=== PATIENT | female | born 1980 | race Caucasian/White ===

== ENCOUNTER 2021-05-13 06:44 | Inpatient (IN) ==
--- NOTE | 2021-05-02 15:15 | Anesthesiology Consultation ---
Date of Service May 02, 2021 Assessment & Plan (1) Encounter for pre-operative examination: Chart Review Chart Review: Acceptable Risk for Surgery (pending preop Covid testing and DOS Cepheid Covid test ) and Patient NOT seen in Pre Admission Testing - Check test AM DOS Per nursing assessment 05/02/2021, patient resides in [facility]. Traveled to [place] and returned [place] on 05/02/21. Pt drove. Pt is NOT vaccinated but wears mask. No known Covid positive contacts or Covid related symptoms. No known Covid infection in the past 90 days. Preop Covid testing scheduled 05/09/21= will await results. (Covid testing will be done 7 days from return home- will also order Cepheid test for AM of surgery due to travel risk/pt is inpatient surgery ). Will leave to anesthesiologist discretion AM of surgery if additional PPE or surgery time is needed. History Surgery Operation Date: 05/13/21 10:30 Proposed Procedures p L5-S1 Decompression Fusion, Spinal Cord Monitoring - Bello Funk DO Height/Weight Height: 5 ft Weight: 72.575 kg Allergies Allergy/AdvReac Type Severity Reaction Status Date / Time sertraline [From Zoloft] Allergy Mild hallucinati Verified 05/02/21 12:54 on venlafaxine [From Effexor] AdvReac Mild raised bp Verified 05/02/21 12:54 Medications Home Medications Medication Instructions Recorded Confirmed Last Taken bupropion HCl [Wellbutrin XL] 300 mg PO QAM 05/02/21 05/02/21 Unknown dextroamphetamine-amphetamine 30 mg PO BID 05/02/21 05/02/21 Unknown [Adderall XR] gabapentin 300 mg PO HS 05/02/21 05/02/21 Unknown hydrocodone-acetaminophen 1 tab PO BID PRN 05/02/21 05/02/21 Unknown levothyroxine [Synthroid] 50 mcg PO QAM 05/02/21 05/02/21 Unknown Past Medical History Medical History Anxiety Attention deficit disorder (ADD) DDD (degenerative disc disease) Depression Hypothyroidism Past Surgical History Surgical History History of carpal tunnel surgery of left wrist ulnar nerve release Hx of appendectomy Hx of heart surgery repair of PDA as child age 4 Social History Smoking Status: Never smoker Do You Dip or Chew Tobacco: No Hx Alcohol Use: Yes alcohol intake frequency: holidays/special occasions only Hx Substance Use: No substance use type: does not use Testing Laboratory Results 04/26/21= WBC: 6.31 H/H: 12.4/38.8 PLATELETS: 265 SODIUM: 138 POTASSIUM: 3.8 CHLORIDE: 108 CO2: 26.0 BUN: 13.0 CREATININE: 0.94 GLUCOSE: 81 PT: 11.1 INR: 0.98 UA: Negative Electrocardiogram Date: 04/26/21 Findings: + NSR @ (76 bpm) Normal EKG per cardio. Chest X-Ray Date: 04/26/21 Findings: + NAD Comparison made to study from 08/31/2016small metallic foreign body seen centrally in the mediastinum unchanged. Cardiac size is normal. Lungs show so me hyperaeration but no acute infiltrate, collapse or edema and no pleural effusion is noted.
[~2021-05-13 06:44] MED LIST: ACETAMINOPHEN 500 MG TAB PO SCH; CeleBREX 200 MG CAP PO SCH; GABAPENTIN 900 MG DOSE PO SCH; LR 15ML/HR IV SCH; ceFAZolin 1000MG 1,000 MG/7.5 ML SYR IV SCH
[2021-05-13] MEDS ORDERED: LABETALOL HCL IV 5 MG/ML 20ML IV PRN (07:32)
[2021-05-13] MEDS ORDERED: HYDROmorphone INJ 1 MG/ML SYRINGE IV PRN ×2 (07:32→12:46)
[2021-05-13] MEDS ORDERED: ePHEDrine sulfate 50 MG/ML AMP IV PRN (07:32)
[2021-05-13] MEDS ORDERED: MEPERIDINE HCL 25 MG/ML CARP/VIAL IV PRN (07:32)
[2021-05-13] MEDS ORDERED: ONDANSETRON INJ 2 MG/ML 2 ML VIAL IV PRN ×2 (07:32→12:46)
[2021-05-13] MEDS ORDERED: PHENYLEPHRINE 100MCG/ML 5ML SYR IV PRN (07:32)
[2021-05-13] MEDS ORDERED: ATROPINE SULFATE 0.1 MG/ML 10ML SYR IV PRN (07:32)
[2021-05-13] MEDS ORDERED: fentaNYL citrate 100 MCG/2 ML VIAL ONE (08:21)
[2021-05-13] MEDS ORDERED: HYDROmorphone INJ 2 MG/ML SYR/VIAL ONE (08:21)
[2021-05-13] MEDS ORDERED: MIDAZOLAM HCL 1 MG/ML 2ML VIAL ONE (08:21)
--- NOTE | 2021-05-13 08:58 | History & Physical Bridge Note ---
Date of Service May 13, 2021 History & Physical Bridge Note I have examined the patient, reviewed the History & Physical and in the interval since the performance of the History & Physical I have noted the following changes of clinical significance: no changes noted
--- NOTE | 2021-05-13 08:59 | History & Physical Report ---
Date of Service May 13, 2021 Assessment & Plan (1) Neurogenic claudication due to lumbar spinal stenosis: Admission and Anticipated Discharge Date Admission Date: L5-S1 decompression fusion History of Present Illness Chief Complaint: Back and bilateral leg pain Primary Care Provider: John Heran This is a 40-year-old female who presents with chronic persistent back and bilateral leg pain. After failing extensive course of nonoperative care she is here for surgical invention. Allergies Allergy/AdvReac Type Severity Reaction Status Date / Time sertraline [From Zoloft] Allergy Mild hallucinati Verified 05/13/21 07:15 on venlafaxine [From Effexor] AdvReac Mild raised bp Verified 05/13/21 07:15 Home Medications Medication Instructions Recorded Confirmed Type bupropion HCl [Wellbutrin XL] 300 mg PO QAM 05/02/21 05/13/21 History dextroamphetamine-amphetamine 30 mg PO BID 05/02/21 05/13/21 History [Adderall XR] gabapentin 300 mg PO HS 05/02/21 05/13/21 History hydrocodone-acetaminophen 1 tab PO BID PRN 05/02/21 05/13/21 History levothyroxine [Synthroid] 50 mcg PO QAM 05/02/21 05/13/21 History Past Med/Surg History Medical History (Updated 05/13/21 @ 08:59 by Bello Funk DO) Anxiety Attention deficit disorder (ADD) DDD (degenerative disc disease) Depression Hypothyroidism Obesity Surgical History History of carpal tunnel surgery of left wrist ulnar nerve release Hx of appendectomy Hx of heart surgery repair of PDA as child age 4 Social History Smoking Status: Never smoker Second Hand Exposure: No; Do You Dip or Chew Tobacco: No; Tobacco Cessation Education Requested by Patient: No Hx Alcohol Use: Yes Hx Substance Use: No Preferred Language: Slovak Communication Ability: Effective Jewel Bearing Broacher Required: No Beliefs That Will Affect Care: None Current Living Situation: Spouse Other Information That Helps Us Care for You: No Feels Safe at Home: Yes Safety Concerns: Feels Safe At This Time Assistive Devices: Contacts Physical Exam Physical Exam: Patient is alert and oriented Heart regular in rhythm Lungs clear to auscultation Results & Data ([facility]) Vital Signs (Past 12 Hours) Vital Signs Temp Pulse Resp BP Pulse Ox 05/13/21 07:27 36.8 C 82 20 105/60 100
[2021-05-13] MEDS ORDERED: BUPIVACAINE/EPINEPHRINE 0.5% MPF 1:200,000 30 ML VIAL ONE (09:19)
[2021-05-13] MEDS ORDERED: PHENYLEPHRINE 100MCG/ML 5ML SYR ONE (10:22)
[2021-05-13] MEDS ORDERED: ePHEDrine sulfate 50 MG/ML AMP ONE (10:22)
[2021-05-13] MEDS ORDERED: PROPOFOL IV EMULSION 10 MG/ML 20 ML VIAL IV ONE (10:24)
[2021-05-13] MEDS ORDERED: ROCURONIUM BROMIDE 10 MG/ML 5 ML VIAL IV ONE (10:24)
[2021-05-13] MEDS ORDERED: DEXAMETHASONE SOD INJ 4 MG/ML VIAL ONE (10:24)
[2021-05-13] MEDS ORDERED: ONDANSETRON INJ 2 MG/ML 2 ML VIAL ONE (10:24)
[2021-05-13] MEDS ORDERED: GLYCOPYRROLATE 0.2 MG/ML VIAL ONE (10:24)
[2021-05-13] MEDS ORDERED: LIDOCAINE 2% 2 ML VIAL/AMP(20MG/ML) INFIL ONE (10:24)
[2021-05-13] MEDS ORDERED: NEOSTIGMINE METHYLSULFATE 1 MG/ML 10ML VIAL ONE (10:24)
[2021-05-13] MEDS ORDERED: FLOSEAL HEMOSTATIC MATRIX 10ML TOP ONE (11:02)
--- NOTE | 2021-05-13 11:09 | Operative Report ---
Post Operative Report Pre & Post Diagnosis Operation Date: 05/13/21 09:35 Pre-Op Diagnosis: Neurogenic Claudication due to Lumbar Spinal Stenosis Spondylolisthesis L5-S1 Post-Op Diagnosis: Neurogenic Claudication due to Lumbar Spinal Stenosis Spondylolisthesis L5-S1 I identified the patient and participated in the time-out.: Yes Procedure Operation Date: 05/13/21 09:35 Actual Procedures #1 lumbar decompression with bilateral medial facetectomies and foraminotomies L5-S1. #2 posterior spinal fusion L5-S1. #3 placement posterior instrumentation L5-S1. #4 interbody fusion L5-S1. #5 placement peek cage 10 x 22 mm L5-S1. #6 placement locally harvested morselized autograft in the posterior lateral gutters. #7 placement of I factor combined with vitoss in the posterior gutters interbody space. Surgeon Bello Funk DO Recruiting And Selection Consultant Anel De Los Santos Estimated Blood Loss 150 Findings Consistent with Post-Op Diagnosis Specimens None Indications This is a 40-year-old female presents above-mentioned diagnosis after failed extensive course of nonoperative care is here for the above-mentioned procedure. Description of Procedure Patient was met with identified informed consent obtained. Patient was then taken to the operative suite underwent ablation placed in a prone position the Tevin table top Jimmy frame. All bony prominences well-padded eyes inspected to ensure no external pressure placed on them. This point the lumbar spine was prepped and draped no sterile fashion. Sharp dissection with the assistance of Bovie cardioselective exposing the lamina and transverse processes of L5 and sacral ala bilaterally. Obvious bilateral pars defect identified. A complete laminectomy of L5 was then performed including bilateral medial facetectomies and foraminotomies addressing severe foraminal stenosis. Pedicle screws were then placed in L5 and S1 levels bilaterally with assistance of fluoroscopy and the proper sized maine placed. By way of a transforaminal portion right a complete discectomy of L5-S1 was performed endplates curetted to subcortical being bone and a 10 x 22 mm peek cage filled with I factor tapped in position. The rods were then locked in final position bilaterally. The transverse processes of L5 and the sacral ala burred to subcortical being bone. I factor locally harvested morselized autograft and Vitoss were then placed in the posterior gutters. 15 round RAY drain inserted. Incision was then closed with 1 Vicryl to fascia 2-0 Vicryl subcutaneously and 4 Monocryl for final skin closure. Steri-Strips dressings placed. Patient waken taken to PACU stable condition. Please note spinal cord monitoring was utilized at the procedure no changes noted. Lastly Anel De Los Santos was present at the entire surgery and while the patient positioning complex portions of the surgery and final skin closure. I attest to the content of the Intraoperative Record and any orders documented therein. Any exceptions are noted below.
--- NOTE | 2021-05-13 11:12 | Fluoroscopy Report ---
FL lumbar spine 2-3V CLINICAL HISTORY: L5-S1 DECOMPRESSION/FUSION/INTERBODY COMPARISON STUDY: None FLUOROSCOPY TIME: 22nd. NUMBER OF FLUOROSCOPIC IMAGES: 2 FINDINGS: 2 intraoperative fluoroscopic spot images reveal postsurgical changes of an L5-S1 discectom y, and interbody fusion with posterior pedicle screw fixation. There is a suspected mild spondylolist hesis of L5 and S1. IMPRESSION: Intraoperative fluoroscopic spot images demonstrating postsurgical changes of an L5-S1 s susan decompression and fusion ACT 112: Negative or not required by law. Electronically signed by: Amilcar Koroma M.D. 05/13/2021 11:10 AM
[2021-05-13] MEDS: fentaNYL citrate 100 MCG/2 ML VIAL IV PRN ×3 (11:29→11:41)
--- NOTE | 2021-05-13 12:10 | Anesthesiology Progress Note ---
Date of Service May 13, 2021 Anesthesia Post Procedure Vital Signs Vital Signs: Temp Pulse Pulse Resp BP Pulse Ox 05/13/21 12:05 36.1 C L 69 12 103/56 L 100 05/13/21 11:55 77 13 95/58 L 100 05/13/21 11:45 78 15 92/47 L 100 05/13/21 11:35 83 15 97/52 L 100 05/13/21 11:28 36 C L 95 H 17 96/67 L 100 05/13/21 07:27 36.8 C 82 20 105/60 100 Pain Intensity Back: Pain Intensity: 2 Transfer of Care Handoff Completed per policy Notes Mental Status: alert / awake / arousable Patient Amnestic to Procedure: Yes Nausea / Vomiting: adequately controlled Pain: adequately controlled Airway Patency, RR, SpO2: stable & adequate BP & HR: stable & adequate Hydration State: stable & adequate Anesthetic Complications: no major complications apparent and Pt Satisfied with anesthetic care
[2021-05-13] MEDS ORDERED: NALOXONE HCL 0.4 MG/1 ML VIAL/CARP IV PRN (12:46)
[2021-05-13] MEDS ORDERED: traMADol HCL 50 MG TABLET PO PRN (12:46)
[2021-05-13] MEDS ORDERED: hydrOXYzine HCl 25 MG TAB PO PRN (12:46)
[2021-05-13] MEDS ORDERED: METOCLOPRAMIDE HCL INJ 5 MG/ML 2 ML VIAL IV PRN (12:46)
[2021-05-13] MEDS ORDERED: DO NOT ADMINISTER PNEUMOCOCCAL VACCINE PRN (12:46)
[2021-05-13] MEDS ORDERED: LORazepam 0.5 MG/1 ML VIAL IV PRN (12:46)
[2021-05-13] MEDS ORDERED: ACETAMINOPHEN 1,000 MG/100 ML VIAL IV PRN (12:46)
[2021-05-13] MEDS ORDERED: ALUMINUM/MAGNESIUM SUSP 30 ML UDC PO PRN (12:46)
[2021-05-13] MEDS ORDERED: FAMOTIDINE 20 MG TAB PO PRN (12:46)
[2021-05-13] MEDS ORDERED: DO NOT ADMINISTER FLU VACCINE PRN (12:46)
[2021-05-13] MEDS ORDERED: SOD PHOSPHATE/SOD BIPHOSPHATE ENEMA 132 ML BTL PR PRN (12:46)
[2021-05-13] MEDS ORDERED: HYDROmorphone INJ 0.5 MG/0.5 ML SYR IV PRN (12:46)
[2021-05-13] MEDS ORDERED: ACETAMINOPHEN 500 MG TAB PO PRN (12:46)
[2021-05-13] MEDS ORDERED: LORazepam 0.5 MG TAB PO PRN (12:46)
[2021-05-13] MEDS ORDERED: PROMETHAZINE HCL 12.5 MG in SODIUM CHLORIDE 0.9% 50 ML IV PRN (12:46)
[2021-05-13] MEDS ORDERED: MAGNESIUM HYDROXIDE SUSP 30 ML UDC PO PRN (12:46)
[2021-05-13] MEDS ORDERED: ONDANSETRON 4 MG OD TAB PO PRN (12:46)
[2021-05-13] MEDS ORDERED: diphenhydrAMINE Capsule 25 MG CAP PO PRN (12:46)
[2021-05-13] MEDS: LACTATED RINGER'S 1,000 ML IV SCH ×2 (13:26→22:44)
[2021-05-13] MEDS: KETOROLAC TROMETHAMINE 15 MG/ML VIAL IV SCH ×3 (13:26→23:33)
[2021-05-13] MEDS: DEXTROAMPHETAMINE/AMPHETAMINE ER 10 MG CAP PO SCH (13:27)
[2021-05-13] MEDS: oxyCODONE HCL IR 5 MG TAB (IMMEDIATE RELEASE) PO PRN ×2 (14:06→19:17)
[2021-05-13] MEDS: ceFAZolin 1000MG 1,000 MG/7.5 ML SYR IV SCH (17:46)
[2021-05-13] MEDS: GABAPENTIN 300 MG CAP PO SCH (20:17)
[2021-05-13] MEDS: DOCUSATE SODIUM/SENNA 50/8.6MG TAB PO SCH (20:17)
[2021-05-14] MEDS: ceFAZolin 1000MG 1,000 MG/7.5 ML SYR IV SCH (01:36)
[2021-05-14] MEDS: KETOROLAC TROMETHAMINE 15 MG/ML VIAL IV SCH (05:08)
[2021-05-14] MEDS: LEVOTHYROXINE SODIUM 50 MCG TABLET PO SCH (05:58)
[2021-05-14] MEDS: POLYETHYLENE (MIRALAX) 17 GM PACK PO SCH ×4 (05:59→23:39)
[2021-05-14 06:35] LABS: Eosinophils # (auto) 0.01 K/uL (0-0.5); Eosinophils % (auto) 0.1 %; Hemoglobin 10.5 g/dL (12.0-16.0); Immature Granulocytes # (auto) 0.03 K/uL (0.00-0.02); Immature Granulocytes % (auto) 0.2 %; Lymphocytes # (auto) 1.25 K/uL (1.2-3.4); Lymphocytes % (auto) 7.6 %; Mean Corpuscular Hemoglobin 29.9 pg (25-34); Mean Corpuscular Hgb Conc 31.8 g/dL (32-36); Mean Platelet Volume 9.4 fL (7.4-10.4); Monocytes # (auto) 0.84 K/uL (0.11-0.59); Monocytes % (auto) 5.1 %; Neutrophils # (auto) 14.22 K/uL (1.4-6.5); Platelet Count 277 K/uL (130-400); RDW Coefficient of Variation 13.1 % (11.5-14.5); Red Blood Count 3.51 M/uL (4.2-5.4); White Blood Count 16.35 K/uL (4.8-10.8)
[2021-05-14 07:12] LABS: BUN Creatinine Ratio 18.4 (10-20); Calcium 8.8 mg/dl (8.5-10.1); Creatinine Clr Calc Pharmacy 90.7 ml/min; Est GFR (African American) 119.4 ml/min; Potassium 4.3 mmol/L (3.5-5.1)
[2021-05-14] MEDS: oxyCODONE HCL IR 5 MG TAB (IMMEDIATE RELEASE) PO PRN ×4 (07:24→23:39)
[2021-05-14] MEDS: buPROPion XL 300 MG TABCR PO SCH ×2 (08:28→08:29)
[2021-05-14] MEDS: DEXTROAMPHETAMINE/AMPHETAMINE ER 10 MG CAP PO SCH ×2 (08:29→14:37)
--- NOTE | 2021-05-14 10:13 | Orthopedic Progress Note ---
Date of Service May 14, 2021 Assessment & Plan (1) Neurogenic claudication due to lumbar spinal stenosis: Admission and Anticipated Discharge Date Admission Date: May 13, 2021 This time initiate physical therapy monitor RAY operatively discharge home in the next few days. Subjective Patient's back pain is controlled leg pain markedly improved with some residual tingling in the right lower extremity. Physical Exam Physical Exam: Patient is good strength testing appears comfortable. Results & Data ([facility]) Vital Signs (Past 12 Hours) Vital Signs Temp Pulse Resp BP Pulse Ox 05/14/21 06:37 36.8 C 82 15 99/65 L 99 05/14/21 02:44 36.8 C 91 H 16 104/69 98 05/13/21 22:41 36.8 C 85 15 101/65 99
[2021-05-14] MEDS: GABAPENTIN 300 MG CAP PO SCH (20:15)
[2021-05-14] MEDS: DOCUSATE SODIUM/SENNA 50/8.6MG TAB PO SCH (20:15)
[2021-05-15] MEDS: oxyCODONE HCL IR 5 MG TAB (IMMEDIATE RELEASE) PO PRN ×2 (05:54→12:08)
[2021-05-15] MEDS: LEVOTHYROXINE SODIUM 50 MCG TABLET PO SCH (05:54)
[2021-05-15] MEDS: POLYETHYLENE (MIRALAX) 17 GM PACK PO SCH ×2 (05:55→11:16)
--- NOTE | 2021-05-15 07:53 | Discharge Summary ---
Date of Service May 15, 2021 Admission HPI Per Admitting Provider This is a 40-year-old female who presents with chronic persistent back and bilateral leg pain. After failing extensive course of nonoperative care she is here for surgical invention. Principal Diagnosis Lumbar spinal stenosis with neurogenic claudication Discharge Data Allergies Allergy/AdvReac Type Severity Reaction Status Date / Time sertraline [From Zoloft] Allergy Mild hallucinati Verified 05/13/21 07:15 on venlafaxine [From Effexor] AdvReac Mild raised bp Verified 05/13/21 07:15 Procedures Performed Operation Date: 05/13/21 09:35 Actual Procedures p L5-S1 Decompression Fusion with Insertion of Interbody, Spinal Cord Monitoring(Not Applicable) - Bello Fnuk DO Ordered Studies 05/13/21 09:35 [place] lumbar spine 2-3V Routine Hospital Course (1) Neurogenic claudication due to lumbar spinal stenosis: Patient with lumbar decompression fusion trial exhausting orthopedic for possibly. Postop day 1 she was up ambulating progressed the postop day #2. RAY drain decreasing appropriately. Excellent strength testing. Subsequent discha rge home. Discharge orders instructions were on the chart for further review. Total Time Total Time Spent Total Time Spent (In Minutes): 20 minutes Discharge Plan Discharge Items Patient Disposition: Home - Self-Care Reason For Visit: Spondylolisthesis, Lumbar Region Discharge Diagnosis: Lumbar spinal stenosis with neurogenic claudication Activity: As commented below Non-emergency contact: Primary Care Provider Call non-emergency contact if: you have any medication questions Follow-up/Referrals: John Hearn M.D. [Primary Care Provider] - Diet: Regular Addtl Attending Provider Instructions: ACTIVITY RECOMMENDATIONS: SELF CARE INSTRUCTIONS AFTER THORACIC/LUMBAR FUSIONS 1. You may walk to your tolerance. It is good exercise for your legs and back. Expect some back and intermittent leg aches and pains. 2. You may perform "counter-top" level activities (make a sandwich, ariana with a project, etc.). 3. No bending or lifting of more than 10 pounds or back twisting of any nature (roll like a log when turning in bed). 4. You may ride in a car for 20-30 minutes at a time. No driving until after your first visit with your doctor. 5. Frequent changes of position and restricting sitting to 30 minutes at a time will help limit the amount of back spasms and stiffness you may experience. 6. You may discontinue the use of ambulatory aids (cane, crutches, etc.) once your strength and confidence allow. 7. You may fisher hand line the shower and let water strike your incision when you arrive home at least once daily. Do not take a tub bath, sit in a hot tub or go into a swimming pool until after your first recheck in the office. SPECIAL CARE INSTRUCTIONS: VERY IMPORTANT TO READ AND REVIEW A. Your surgical incision has been closed with a cosmetic suture under the skin that will dissolve in about 6 weeks. In 14 days, you can use a pair of clean scissors and cut the suture that is left outside of the skin at the ends of your incision. 1. The small skin tapes can be removed 7 days after surgery if they have not fallen off by that point. 2. You may keep the wound open to air as much as possible to promote healing after post-op day number 5 unless told otherwise by your doctor. 3. If you think the wound looks like it is becoming infected (redness or worsening drainage) and/or you are experiencing fever, chill or worsening back pain and muscle spasms, contact the office so that we may evaluate you as soon as possible. B. Complications are uncommon, but please contact us if you have any signs or symptoms of: 1. wound infection (fever higher than 102.5 degrees F, redness, separation of wound, drainage, or increasing pain from the incision) 2. blood clots in legs (pain, swelling, redness and warmth in legs) 3. urinary tract infection (fever higher than 102.5 degrees F, burning upon urination or increased frequency of urination) 4. nerve problems (inability to walk on your toes or heels, numbness, loss of bowel or bladder control) 5. any other symptoms that concern you C. Please call the office at if you have any concerns or questions about your operation or recovery. D. No smoking! Smoking drastically decreases the chance of a solid fusion. E. Do not take any anti-inflammatory medications (Indocin, Advil, Motrin, Aspirin, Naprosyn, etc.) as these may inhibit the chance of a solid fusion. Tylenol is okay to take for pain. MANAGING PAIN AFTER SPINAL SURGERY 1. Narcotic medication is intended for short-term use and will be provided for surgical pain. Surgical pain usually lasts for a period of 4-6 weeks. Narcotic medication includes Percocet, Vicodin, Darvocet, Tylenol #3 or Lortab. 2. Longer-term pain is more appropriately treated with non-narcotic medication such as Tylenol ES. 3. Muscle spasm is not appropriately treated with narcotics. Muscle relaxers such as Soma, Flexeril or Skelaxin can be used along with Tylenol ES. 4. Remember that we all live with some "aches and pains". This is not unusual or uncommon after an injury or as we get older. a. Back pain is expected and may include muscle spasms for 4 to 6 weeks after surgery. The pain should gradually improve. If the pain worsens for no apparent reason, please contact the office. b. Intermittent leg pain may also be experienced and should not be concerned about unless it worsens for no apparent reason. If so, please contact the office. 5. We will provide appropriate medication within the normal guidelines of their prescribed use. We will also be very cautious and aware of potential abuse and extended duration of patients' medication needs. a. Pain medications are for your comfort and to assist with sleep and rest so that the tissue can heal. They are not provided in order to return to normal activity and should not be used through the day. To do so or worsening pain at night can result from ongoing tissue damage and development of tolerance to the prescribed medicine. 6. Please allow 2-3 days to process refills. Prescriptions will not be mailed but must be picked up at the office. FOLLOW UP VISIT: Keep your scheduled follow-up appointment. Any questions, please call the office at . Pending Studies at Discharge: No Stand-Alone Forms: [employer], Smoking Cessation Medications and DC Order Prescriptions: New tramadol 50 mg tablet 50 mg PO Q6H PRN (Reason: pain, moderate) Qty: 30 RF: 0 oxycodone 5 mg tablet 5 mg PO Q6H PRN (Reason: pain, severe) Qty: 30 RF: 0 Continued hydrocodone-acetaminophen 5-325 mg Tablet 1 tab PO BID PRN (Reason: Pain) RF: 0 levothyroxine [Synthroid] 50 mcg Tablet 50 mcg PO QAM RF: 0 gabapentin 300 mg Capsule 300 mg PO HS RF: 0 dextroamphetamine-amphetamine [Adderall XR] 30 mg Capsule,Extended Release 24hr 30 mg PO BID RF: 0 bupropion HCl [Wellbutrin XL] 300 mg Tablet Extended Release 24 Hr 300 mg PO QAM RF: 0 Discharge Orders: Discharge Order (Routine); Ordered 05/15/21 Ordered By: Bello Funk Admission Data Admit Date/Time: 05/13/21 11:30 Attending Provider: Bello Funk Admit Provider: Bello Funk Primary Care Provider: oJhn Hearn
[2021-05-15] MEDS ORDERED: dexAMETHasone 8 MG in SYRINGE 0 ML IV SCH (09:00)
[2021-05-15] MEDS: DEXTROAMPHETAMINE/AMPHETAMINE ER 10 MG CAP PO SCH (09:20)
[2021-05-15] MEDS ORDERED: bisacodyL 10 MG SUPP PR PRN (11:10)
== END 2021-05-15 12:45 | disposition home or self-care (01) | DRG 455 ==
LOC: ASU 06:44 → 3N 11:30